=== PATIENT | male | born 1960 | race Caucasian/White ===

== ENCOUNTER 2022-01-16 14:09 | Emergency (ER) | payer OTHER ==
[~2022-01-16] VITALS: Ht 172.7 cm; Wt 87.1 kg
[2022-01-16] MEDS ORDERED: ZESTORETIC 20-1 EACH PO (14:35)
== END 2022-01-16 14:38 | disposition home or self-care (01) ==
LOC: ED 14:09
DX: I16.0 Hypertensive urgency (principal); H66.92 Otitis media, unspecified, left ear

== ENCOUNTER → 2022-02-20 | Outpatient (CLI) | payer OTHER ==
[~2022-02-20] MED LIST: ZESTORETIC 20-1 EACH PO
[2022-02-20 10:45] LABS: BASO % 0.3 % (0.0-1.0); EOS # 0.1 10*3/uL (0.0-0.4); EOS % 1.4 % (1.0-4.0); HEMATOCRIT 45.2 % (42.0-52.0); LYMPH # 1.5 10*3/uL (1.3-4.4); MEAN CELL VOLUME 88.1 fl (80.0-94.0); MEAN CORPUSCULAR HGB 29.8 pg (27.0-31.0); MEAN CORPUSCULAR HGB CONC 33.8 g/dl (33.0-37.0); MEAN PLATELET VOLUME 8.8 fl (9.6-12.3); MONO # 0.5 10*3/uL (0.1-1.0); MONO % 7.9 % (3.0-9.0); NEUT # 4.2 10*3/uL (2.3-7.9); NEUT % 67.1 % (47.0-73.0); PLATELET COUNT AUTOMATED 239 10*3/uL (130-400); RED BLOOD COUNT 5.13 10*6/uL (4.50-5.90); RED CELL DISTRI WIDTH 11.9 % (0-14.5); WHITE BLOOD COUNT 6.3 10*3/uL (4.8-10.8)
[2022-02-20 11:07] LABS: ALKALINE PHOSPHATASE 53 U/L (45-117); BUN 12 mg/dl (7-24); CHLORIDE 103 mmol/L (98-107); CHOLESTEROL 194 mg/dL (<200); CREATININE 0.99 mg/dL (0.70-1.30); LDL CHOLESTEROL 97 mg/dL (9-159); POTASSIUM 4.2 mmol/L (3.5-5.1); SGOT/AST 23 IU/L (3-35); SGPT/ALT 29 U/L (12-78); SODIUM 135 mmol/L (136-145); T3 UPTAKE 35 % (31-39); THYROXINE (T4) TOTAL 8.7 ug/dl (4.5-12.1); TOTAL PROTEIN 7.8 gm/dL (6.4-8.2); TRIGLYCERIDES 50 mg/dl (<150)
[2022-02-20 11:12] LABS: THYROID STIM HORMONE (HS) 0.591 uIU/ml (0.358-4.75)
== END | disposition home or self-care (01) ==
LOC: LAB 10:20
PROVIDERS: ATTEND Family Medicine
DX: Z00.00 Encounter for general adult medical examination without abnormal findings (principal); Z13.1 Encounter for screening for diabetes mellitus; Z13.6 Encounter for screening for cardiovascular disorders; Z11.59 Encounter for screening for other viral diseases; Z51.81 Encounter for therapeutic drug level monitoring; R06.2 Wheezing; R35.0 Frequency of micturition; Z12.5 Encounter for screening for malignant neoplasm of prostate

== ENCOUNTER 2025-02-14 21:12 | Emergency (ER) | payer OTHER ==
[~2025-02-14] VITALS: Ht 177.8 cm; Wt 83.5 kg
[2025-02-14] MEDS ORDERED: EPINEPHrine/Lidocaine Hydroc 20 ML VIAL SC ONE (23:45)
[2025-02-15] MEDS ORDERED: HYDROCODONE-AC1 EAC1 PO (01:52)
[2025-02-15] MEDS ORDERED: Bacitracin Zinc 14 GM TUBE T ONE (01:55)
== END 2025-02-15 02:37 | disposition home or self-care (01) ==
LOC: ED 21:12
DX: S01.01XA Laceration without foreign body of scalp, initial encounter (principal); S61.412A Laceration without foreign body of left hand, initial encounter; Z79.899 Other long term (current) drug therapy; Y00.XXXA Assault by blunt object, initial encounter; Y93.89 Activity, other specified; Y92.89 Other specified places as the place of occurrence of the external cause; Y99.8 Other external cause status

== ENCOUNTER 2025-02-23 11:14 | Emergency (ER) | payer OTHER ==
[~2025-02-23] VITALS: Wt 86.2 kg
[~2025-02-23 11:14] MED LIST changes: +HYDROCODONE-AC1 EAC1 PO
== END 2025-02-23 12:09 | disposition home or self-care (01) ==
LOC: ED 11:14
DX: S01.01XD Laceration without foreign body of scalp, subsequent encounter (principal); S61.412D Laceration without foreign body of left hand, subsequent encounter; Z48.02 Encounter for removal of sutures; Z79.899 Other long term (current) drug therapy; Y08.89XD Assault by other specified means, subsequent encounter